=== PATIENT | female | born 1975 | race African-American/Black ===

== ENCOUNTER 2020-10-03 13:15 | Outpatient (CLI) | payer OTHER, SELFPAY ==
--- NOTE | ~2020-10-03 | XR_ITS ---
EXAMINATION: XR chest 2V DATE: 10/03/2020 13:45 INDICATION: Positive PPD TECHNIQUE: PA and lateral views of the chest are obtained. COMPARISON: 01/06/2019 FINDINGS: There is mild atelectasis of the left lung base. There is no pleural effusion or pneumothor ax. The cardiomediastinal silhouette is normal. There is mild thoracic spondylosis. IMPRESSION: 1. No acute cardiopulmonary abnormality. Reviewed, dictated and finalized at location A. MENT REVIEW SPECIALIST
== END 2020-10-03 13:16 | disposition home or self-care (01) ==
PROVIDERS: PCP Nurse Practitioner Family
DX: R76.11 Nonspecific reaction to tuberculin skin test without active tuberculosis (principal)
CPT/HCPCS: 71046

== ENCOUNTER 2025-01-06 16:10 | Emergency (ER) | payer OTHER, SELFPAY ==
--- OUTSIDE RECORDS SUMMARY | 2025-01-06 16:12 | XMS_ITS | Referral Summary ---
Author Organization [facility] [place] [address] Address [address] [place] [phone] Care Team Providers Care Instructor Product Inspection Name Role Phone Unknown, Notinfile Primary Care Provider Unavail able Allergies No known active allergies Medications No known medications Active Problems No known active problems Immunizations Immunization Administration Dates Next Due Influenza, Quadrivalent, Split, Intramuscular MMR 10/12/2020 Tdap 10/19/2020 Social History Tobacco Use Types Packs/Day Years Used Date Smoking Tobacco: Never Assessed Comments Unknown Sex and Gender Information Value Date Recorded Sex Assigned at Not on file 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 Gender Identity Not on file Sexual Orientation Not on file Last Filed Vital Signs Vital Sign Reading Time Taken Comments Blood Pressure 107/74 12/09/2021 12:43 PM CDT Pulse 80 12/09/2021 12:43 PM CDT Temperature 37 C (98.6 F) 12/09/2021 12:43 PM CDT Respiratory Rate 16 12/09/2021 12:43 PM CDT Oxygen Saturation 99% 12/09/2021 12:43 PM CDT Inhaled Oxygen Concentration - - Weight 100.7 kg (222 lb) 12/09/2021 12:43 PM CDT Height 170.2 cm (5' 7 ) 12/09/2021 12:43 PM CDT Body Mass Index 34.77 12/09/2021 12:43 PM CDT Plan of Treatment Not on file Insurance [facility] Care Teams Instructor Product Inspection Relationship Specialty Start Date End Date Unknown, Notinfile PCP - General 12/09/21
--- OUTSIDE RECORDS SUMMARY | 2025-01-06 16:12 | XMS_ITS | Clinical Summary ---
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 Gender Identity Not on file Sexual Orientation Not on file Obstetrics History Last Filed Vital Signs Vital Sign Reading [...] 12/09/2021 12:43 PM CDT Plan of Treatment Health Maintenance Due Date Last Done Comments Cervical Cancer Screening 1975 Colon Cancer Screening-Colonoscopy 1975 Depression Screening 1975 Hepatitis C Screening 1975 Hepatitis B Screening 1993 Regular Well Visit/Exam 18-64 1993 Breast Cancer Screening-Mammogram 06/07/2019 06/07/2018 Covid-19 Vaccine (3 - 2023-2 5 season) 2024 04/25/2021, 11/21/2020 Influenza Vaccine (#1) 2024 10/19/2020 DTaP/Tdap/Td Vaccine (2 - Td or Tdap) 10/19/2030 10/19/2020 Pneumococcal vaccine <65 Aged Out No longer eligible based on patient's age to complete this topic Insurance [facility] Care Teams Van Driver Helper Relationship Specialty Start Date End Date Unknown, Notinfile PCP - General 12/09/21
[2025-01-06 16:45] VITALS: BP 152/89; PULSE 95; RESP 16; TEMP 36.6; O2SAT 100
--- NOTE | 2025-01-06 18:52 | PC.NURSE ---
coding tech calls patient to go to a room at 1848 with no answer. patient did not notify staff of leaving.
--- OUTSIDE RECORDS SUMMARY | 2025-01-06 20:42 | XMS_ITS | Clinical Summary ---
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
--- OUTSIDE RECORDS SUMMARY | 2025-01-06 20:42 | XMS_ITS | Referral Summary ---
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
== END 2025-01-06 18:52 | disposition left against medical advice (07) ==
DX: G43.909 Migraine, unspecified, not intractable, without status migrainosus (principal)
CPT/HCPCS: 99199